=== PATIENT | female | born 1965 | race Caucasian/White ===

== ENCOUNTER → 2017-01-28 | Outpatient (CLI) | payer OTHER ==
--- NOTE | 2017-01-30 09:06 | MM ---
Reason for exam: additional evaluation requested from prior study. Last mammogram was performed 1 year and 7 months ago. History: Patient is postmenopausal. Family history of breast cancer in paternal grandmother at age 50 and breast cancer in paternal aunt at age 50. Took estrogen for 6 months beginning at age 38. Physical Findings: Nurse did not find any significant physical abnormalities on exam. MG Diagnostic Mammo w CAD MADELEINE Bilateral CC and MLO view(s) were taken. Spot compression CC view(s) were taken of the left breast. Prior study comparison: July 14, 2015, bilateral MG 3d diag mammo w/cad MADELEINE. The breast tissue is heterogeneously dense. This may lower the sensitivity of mammography. A central asymmetry on the left CC view does not persist. No significant new findings when compared with previous films. These results were verbally communicated with the patient and result sheet given to the patient on 01/28/17. ASSESSMENT: Negative, BI-RAD 1 RECOMMENDATION: Routine screening mammogram of both breasts in 1 year. Manage on a clinical basis with regard to left breast pain.
== END | disposition home or self-care (01) ==
LOC: RADMAMWWP 08:08
PROVIDERS: ATTEND Family Medicine
DX: N64.4 Mastodynia (principal)

== ENCOUNTER → 2017-03-22 | Outpatient (CLI) | payer OTHER ==
--- NOTE | 2017-03-22 17:24 | ECHOF ---
Referral Reason:R06.02 sob MEASUREMENTS -------- HEIGHT: 157.5 cm WEIGHT: 98.9 kg BP: IVSd: 1.1 cm (0.6 - 1.1) LVIDd: 4.3 cm (3.9 - 5.3) LVPWd: 1.2 cm (0.6 - 1.1) IVSs: 1.7 cm LVIDs: 2.3 cm LVPWs: 2.0 cm Ao Diam: 2.9 cm (2.0 - 3.7) AV Cusp: 1.9 cm (1.5 - 2.6) LA Diam: 3.4 cm (2.7 - 3.8) MV EXCURSION: 14.577 mm (> 18.000) MV EF SLOPE: 111 mm/s (70 - 150) EPSS: 0.5 cm MV E Carlos: 1.07 m/s MV DecT: 178 ms MV A Carlos: 1.04 m/s MV E/A Ratio: 1.03 RAP: 5.00 mmHg RVSP: 18.37 mmHg FINDINGS -------- Sinus rhythm. This was a technically good study. There is borderline concentric left ventricular hypertrophy. Overall left ventricular systolic function is normal with, an EF between 55 - 60 %. The right ventricle is normal in size. The left atrium is normal in size. The right atrium is normal in size. The aortic valve is trileaflet, and appears structurally normal. No aortic stenosis or regurgitation. The mitral valve leaflets are mildly thickened. Mild mitral annular calcification present. There is trace mitral regurgitation. Trace tricuspid regurgitation present. The right ventricular systolic pressure, as measured by Doppler, is 18.37mmHg. Pulmonic valve appears structurally normal. The aortic root size is normal. The pericardium is normal. CONCLUSIONS -------- 1. Sinus rhythm. 2. Mild mitral annular calcification present. 3. There is trace mitral regurgitation. 4. Trace tricuspid regurgitation present. 5. The right ventricular systolic pressure, as measured by Doppler, is 18.37mmHg. 6. Pulmonic valve appears structurally normal. 7. The aortic root size is normal. 8. The pericardium is normal. 9. This was a technically good study. 10. There is borderline concentric left ventricular hypertrophy. 11. Overall left ventricular systolic function is normal with, an EF between 55 - 60 %. 12. The right ventricle is normal in size. 13. The left atrium is normal in size. 14. The right atrium is normal in size. 15. The aortic valve is trileaflet, and appears structurally normal. No aortic stenosis or regurgitation. 16. The mitral valve leaflets are mildly thickened. [employer] DEVELOPER: Tnaya Cardenas RDCS
--- NOTE | 2017-03-23 14:46 | ECHOS ---
DATE OF SERVICE: 03/22/2017 TYPE OF REPORT: STRESS ECHOCARDIOGRAM INDICATIONS: Mrs. Ramsey is a 52-year-old female with history of chest pain and hypertension being evaluated for cardiac status. BASELINE HEART RATE: 95 BASELINE BLOOD PRESSURE: 196/93 MAXIMUM HEART RATE: 149 MAXIMUM BLOOD PRESSURE: 203/68 85% MPHR 144 100% MPHR 169 METS: 7.1 MAXIMUM STAGE REACHED: 3 TOTAL EXERCISE TIME: 6:00 Baseline EKG showed sinus rhythm with normal ID interval and normal QRS duration. Blood pressure at rest is 161/93 with pulse rate of 95. Patient walked on a Rhett protocol for 6 minutes achieving a maximum heart rate of 150 with blood pressure of 173/98. EKGs taken during and after the exercise did not reveal any significant changes from the baseline. Baseline echo images showed normal wall motion and thickening. Exercise echo images showed augmentation of the wall motion and thickening of all the segments. FINAL IMPRESSION: 1. Negative stress test. 2. Negative stress echo. LISA
== END ==
LOC: RADNMMAIN 09:40
PROVIDERS: ATTEND Family Medicine
DX: R07.9 Chest pain, unspecified (principal); I08.1 Rheumatic disorders of both mitral and tricuspid valves
CPT/HCPCS: 93017; 93306; 93350

== ENCOUNTER 2017-06-11 21:55 | Inpatient (IN) | payer OTHER ==
--- NOTE | 2017-06-11 22:20 | ED ---
General Adult HPI - General Chief complaint: Dizziness Stated complaint: infection Time Seen by Provider: 06/11/17 22:12 Source: patient, RN notes reviewed, old records reviewed Mode of arrival: ambulatory Limitations: no limitations - History of Present Illness Initial comments: This is a 52-year-old female to the ER for evaluation. She comes in today for evaluation of not feeling well. Patient states she has not been feeling well for about 2 weeks. We'll proceed to she may have prediabetes. She has no significant medical history. No nausea or vomiting. No chest pain no shortness of breath. Patient states she also has had admitted with an infection on her left pointer finger. This infection got worse over the last 2 days. She believes if x-ray because of her symptoms. She states the abscess originally drained and now is much worse. - Related Data Home Medications Medication Instructions Recorded Confirmed Atenolol [Tenormin] 50 mg PO DAILY 10/31/14 06/11/17 Previous Rx's Medication Instructions Recorded Sulfamethox-Tmp 800-160Mg [Bactrim 1 tab PO Q12HR #20 tab 06/11/17 DS 800-160 mg] Insulin Glargine,Hum.rec.anlog 10 unit SQ DAILY #3 pen 06/12/17 [Lantus Solostar] metFORMIN HCL [Glucophage] 500 mg PO BID-W/MEALS #60 tab 06/12/17 Allergies Allergy/AdvReac Type Severity Reaction Status Date / Time No Known Allergies Allergy Verified 06/11/17 22:30 Review of Systems ROS Statement: Those systems with pertinent positive or pertinent negative responses have been documented in the HPI. ROS Other: All systems not noted in ROS Statement are negative. Past Medical History Past Medical History: Hypertension, Neurologic Disorder, Pneumonia Additional Past Medical History / Comment(s): 12/01/14 PT admitted to floor s/p cervical surgery. Other HX: PT HAD BACTERIAL PNEUMONIA 10/31/14-STILL HAS ACUTE LARYNGITIS. MIGRAINES History of Any Multi-Drug Resistant Organisms: None Reported Past Surgical History: Hysterectomy Additional Past Surgical History / Comment(s): 12/01/14 Anterior cervical decompression and fusion C5-6, C6-7 with placement interbody graft C5-6, C6-7m application of anterior cevical plate C5,6,7. DIAGNOSTIC LAP EXAM/OVARIAN CYSTECTOMY. COLONOSCOPY. D & C Past Anesthesia/Blood Transfusion Reactions: Postoperative Nausea & Vomiting ( PONV) Past Psychological History: No Psychological Hx Reported Smoking Status: Former smoker Past Alcohol Use History: Occasional Past Drug Use History: None Reported - Past Family History Mother Family Medical History: Cancer Father Additional Family Medical History / Comment(s): Father is alive with no major medical problems. Grandfather had history of heart failure. Sister(s) Additional Family Medical History / Comment(s): Patient had a sister that at age 12 from ALLERGIC reaction with history of asthma. Patient has one daughter with no major medical problems. General Exam Limitations: no limitations General appearance: alert, in no apparent distress Head exam: Present: atraumatic, normocephalic, normal inspection Eye exam: Present: normal appearance, PERRL, EOMI. Absent: scleral icterus, conjunctival injection, periorbital swelling ENT exam: Present: normal exam, mucous membranes moist Neck exam: Present: normal inspection. Absent: tenderness, meningismus, lymphadenopathy Respiratory exam: Present: normal lung sounds bilaterally. Absent: respiratory distress, wheezes, rales, rhonchi, stridor Cardiovascular Exam: Present: regular rate, normal rhythm, normal heart sounds. Absent: systolic murmur, diastolic murmur, rubs, gallop, clicks GI/Abdominal exam: Present: soft, normal bowel sounds. Absent: distended, tenderness, guarding, rebound, rigid Extremities exam: Present: normal inspection, full ROM, normal capillary refill , other (Left index finger paronychia). Absent: tenderness, pedal edema, joint swelling, calf tenderness Back exam: Present: normal inspection Neurological exam: Present: alert, oriented X3, CN II-XII intact Psychiatric exam: Present: normal affect, normal mood Skin exam: Present: warm, dry, intact, normal color. Absent: rash Course Vital Signs 06/11/17 06/12/17 06/12/17 21:59 03:30 07:00 Temperature 98 F 98.2 F 98.2 F Pulse Rate 91 Pulse Rate [ 76 80 Pulse Oximetery ] Respiratory 20 16 16 Rate Blood Pressure 189/85 Blood Pressure 147/70 137/67 [Left Arm] O2 Sat by Pulse 97 98 96 Oximetry 06/12/17 06/12/17 08:00 15:55 Temperature Pulse Rate Pulse Rate [ 80 80 Pulse Oximetery ] Respiratory 16 16 Rate Blood Pressure Blood Pressure [Left Arm] O2 Sat by Pulse Oximetry EKG Findings - EKG Comments: EKG Findings:: EKG shows normal sinus at a rate of 81, NV 140, QRS 86, QTC 432 Procedures - Incision & Drainage Consent Obtained: verbal consent Time Out Performed?: Yes Site: other (Left Index Finger) Anesthetic Used: lidocaine 1% I&D Cleaning Method: Betadine Sterile Field Used?: Yes Scalpel Used: #11 Needle Aspiration Performed?: Yes Irrigation Performed?: Yes I&D Drainage Obtained: Pus Culture Obtained?: No Complications: pain Patient Tolerated Procedure: well Medical Decision Making - Medical Decision Making 52 female the ER for evaluation regarding not feeling well. Patient's left index paronychia, that is infected incised and drained, patient is given antibiotics and patient also for severely elevated blood sugar, patient will be admitted for control blood sugar IV antibiotics and reevaluation of him paronychia - Lab Data Result diagrams: 06/11/17 22:42 06/11/17 22:42 Lab Results 06/11/17 06/11/17 06/11/17 Range/Units 22:42 22:42 22:42 WBC 7.3 (3.8-10.6) k/uL RBC 4.71 (3.80-5.40) m/uL Hgb 14.6 (11.4-16.0) gm/dL Hct 42.2 (34.0-46.0) % MCV 89.5 (80.0-100.0) fL MCH 31.0 (25.0-35.0) pg MCHC 34.6 (31.0-37.0) g/dL RDW 12.2 (11.5-15.5) % Plt Count 346 (150-450) k/uL Neutrophils % 62 % Lymphocytes % 27 % Monocytes % 5 % Eosinophils % 3 % Basophils % 1 % Neutrophils # 4.5 (1.3-7.7) k/uL Lymphocytes # 1.9 (1.0-4.8) k/uL Monocytes # 0.4 (0-1.0) k/uL Eosinophils # 0.2 (0-0.7) k/uL Basophils # 0.1 (0-0.2) k/uL Sodium 131 L (137-145) mmol/L Potassium 4.8 (3.5-5.1) mmol/L Chloride 94 L (98-107) mmol/L Carbon Dioxide 25 (22-30) mmol/L Anion Gap 12 mmol/L BUN 13 (7-17) mg/dL Creatinine 0.60 (0.52-1.04) mg/dL Est GFR (MDRD) Af Amer >60 (>60 ml/min/1.73 sqM) Est GFR (MDRD) Non-Af >60 (>60 ml/min/1.73 sqM) Glucose 634 H* (74-99) mg/dL POC Glucose (mg/dL) (75-99) mg/dL POC Glu Director Supply ID Estimated Ave Glu mg/dL Hemoglobin A1c (4.0-6.0) % Calcium 9.3 (8.4-10.2) mg/dL Phosphorus 4.0 (2.5-4.5) mg/dL Magnesium 1.8 (1.6-2.3) mg/dL Total Bilirubin 0.5 (0.2-1.3) mg/dL AST 47 H (14-36) U/L ALT 77 H (9-52) U/L Alkaline Phosphatase 224 H (38-126) U/L Total Creatine Kinase 78 (30-135) U/L CK-MB (CK-2) 0.9 (0.0-2.4) ng/mL CK-MB (CK-2) Rel Index 1.2 Troponin I <0.012 (0.000-0.034) ng/mL Total Protein 7.0 (6.3-8.2) g/dL Albumin 4.2 (3.5-5.0) g/dL Acetone, Qual (Negative) 06/11/17 06/11/17 06/12/17 Range/Units 22:42 22:42 01:19 WBC (3.8-10.6) k/uL RBC (3.80-5.40) m/uL Hgb (11.4-16.0) gm/dL Hct (34.0-46.0) % MCV (80.0-100.0) fL MCH (25.0-35.0) pg MCHC (31.0-37.0) g/dL RDW (11.5-15.5) % Plt Count (150-450) k/uL Neutrophils % % Lymphocytes % % Monocytes % % Eosinophils % % Basophils % % Neutrophils # (1.3-7.7) k/uL Lymphocytes # (1.0-4.8) k/uL Monocytes # (0-1.0) k/uL Eosinophils # (0-0.7) k/uL Basophils # (0-0.2) k/uL Sodium (137-145) mmol/L Potassium (3.5-5.1) mmol/L Chloride (98-107) mmol/L Carbon Dioxide (22-30) mmol/L Anion Gap mmol/L BUN (7-17) mg/dL Creatinine (0.52-1.04) mg/dL Est GFR (MDRD) Af Amer (>60 ml/min/1.73 sqM) Est GFR (MDRD) Non-Af (>60 ml/min/1.73 sqM) Glucose (74-99) mg/dL POC Glucose (mg/dL) 480 H (75-99) mg/dL POC Glu Director Supply ID Candelaria Smith Estimated Ave Glu mg/dL 243 Hemoglobin A1c 10.1 H (4.0-6.0) % Calcium (8.4-10.2) mg/dL Phosphorus (2.5-4.5) mg/dL Magnesium (1.6-2.3) mg/dL Total Bilirubin (0.2-1.3) mg/dL AST (14-36) U/L ALT (9-52) U/L Alkaline Phosphatase (38-126) U/L Total Creatine Kinase (30-135) U/L CK-MB (CK-2) (0.0-2.4) ng/mL CK-MB (CK-2) Rel Index Troponin I (0.000-0.034) ng/mL Total Protein (6.3-8.2) g/dL Albumin (3.5-5.0) g/dL Acetone, Qual Negative (Negative) 06/12/17 06/12/17 Range/Units 02:17 03:11 WBC (3.8-10.6) k/uL RBC (3.80-5.40) m/uL Hgb (11.4-16.0) gm/dL Hct (34.0-46.0) % MCV (80.0-100.0) fL MCH (25.0-35.0) pg MCHC (31.0-37.0) g/dL RDW (11.5-15.5) % Plt Count (150-450) k/uL Neutrophils % % Lymphocytes % % Monocytes % % Eosinophils % % Basophils % % Neutrophils # (1.3-7.7) k/uL Lymphocytes # (1.0-4.8) k/uL Monocytes # (0-1.0) k/uL Eosinophils # (0-0.7) k/uL Basophils # (0-0.2) k/uL Sodium (137-145) mmol/L Potassium (3.5-5.1) mmol/L Chloride (98-107) mmol/L Carbon Dioxide (22-30) mmol/L Anion Gap mmol/L BUN (7-17) mg/dL Creatinine (0.52-1.04) mg/dL Est GFR (MDRD) Af Amer (>60 ml/min/1.73 sqM) Est GFR (MDRD) Non-Af (>60 ml/min/1.73 sqM) Glucose (74-99) mg/dL POC Glucose (mg/dL) 366 H 273 H (75-99) mg/dL POC Glu Director Supply ID Candelaria Smith Brenda Estimated Ave Glu mg/dL Hemoglobin A1c (4.0-6.0) % Calcium (8.4-10.2) mg/dL Phosphorus (2.5-4.5) mg/dL Magnesium (1.6-2.3) mg/dL Total Bilirubin (0.2-1.3) mg/dL AST (14-36) U/L ALT (9-52) U/L Alkaline Phosphatase (38-126) U/L Total Creatine Kinase (30-135) U/L CK-MB (CK-2) (0.0-2.4) ng/mL CK-MB (CK-2) Rel Index Troponin I (0.000-0.034) ng/mL Total Protein (6.3-8.2) g/dL Albumin (3.5-5.0) g/dL Acetone, Qual (Negative) Disposition Clinical Impression: Paronychia of left index finger, Hyperglycemia Disposition: ADMITTED IP TO THIS HOSP Condition: Good
[2017-06-11] MEDS ORDERED: MORPHINE SULFATE 10 MG/ML SYRINGE IV STA (22:43)
[2017-06-11] MEDS ORDERED: KETOROLAC 30 MG/ML 1 ML VIAL IVP STA (22:43)
[2017-06-11] MEDS ORDERED: ONDANSETRON 4 MG/2 ML VIAL IVP STA (22:43)
[2017-06-11] MEDS ORDERED: SODIUM CHLORIDE 0.9% 1,000 ML IV STA ×2 (22:43)
[2017-06-11] MEDS ORDERED: AMPICILLIN-SULBACTAM 3 GM in SODIUM CHLORIDE 0.9% 100 ML IVPB STA (22:47)
[2017-06-11 22:54] LABS: Basophils # (A) 0.1 k/uL (0-0.2); Basophils % (A) 1 %; CH 31.9; CHCM 35.8; Eosinophils # (A) 0.2 k/uL (0-0.7); Eosinophils % (A) 3 %; HCT 42.2 % (34.0-46.0); HDW 2.94; HGB 14.6 gm/dL (11.4-16.0); Luc # (Auto) 0.19; Luc % (Auto) 3; Lymphocytes # (A) 1.9 k/uL (1.0-4.8); Lymphocytes % (A) 27 %; MCHC 34.6 g/dL (31.0-37.0); MCV 89.5 fL (80.0-100.0); Mean Platelet Volume 7.9; Monocytes # (A) 0.4 k/uL (0-1.0); Monocytes % (A) 5 %; Neutrophils # (A) 4.5 k/uL (1.3-7.7); Neutrophils % (A) 62 %; RBC 4.71 m/uL (3.80-5.40); RDW 12.2 % (11.5-15.5); WBC 7.3 k/uL (3.8-10.6); WBC (Perox) 7.13
[2017-06-11 23:07] LABS: ALT 77 U/L (9-52); AST 47 U/L (14-36); Alkaline Phosphatase 224 U/L (38-126); Anion Gap 12 mmol/L; Blood Urea Nitrogen 13 mg/dL (7-17); Calcium 9.3 mg/dL (8.4-10.2); Carbon Dioxide 25 mmol/L (22-30); Chloride 94 mmol/L (98-107); Magnesium 1.8 mg/dL (1.6-2.3); Non-African American GFR(MDRD) >60 (>60 ml/min/1.73 sqM); Potassium 4.8 mmol/L (3.5-5.1); Sodium 131 mmol/L (137-145); Total Bilirubin 0.5 mg/dL (0.2-1.3)
[2017-06-11] MEDS ORDERED: SODIUM CHLORIDE 0.9% 100 ML BAG ONE (23:53)
[2017-06-11] MEDS ORDERED: HYDROcodone/APAP 5-325MG 1 EACH TAB ONE (23:53)
[2017-06-11] MEDS ORDERED: VANCOMYCIN 1,000 MG VIAL ONE (23:53)
[2017-06-11] MEDS ORDERED: INSULIN REGULAR 100 UNIT/ML VIAL ONE (23:53)
[2017-06-11] MEDS ORDERED: SODIUM CHLORIDE 0.9% 250 ML BAG ONE (23:53)
[2017-06-11] MEDS ORDERED: VANCOMYCIN 500 MG VIAL IVPB ONE (23:53)
[2017-06-12 03:19] LABS: Glucose 634 mg/dL (74-99)
[2017-06-12 04:00] LABS: Creatine Kinase 78 U/L (30-135); Creatine Kinase MB 0.9 ng/mL (0.0-2.4); Troponin I <0.012 ng/mL (0.000-0.034)
[2017-06-12] MEDS ORDERED: VANCOMYCIN 1,500 MG in SODIUM CHLORIDE 0.9% 250 ML IVPB ONE (04:00)
[2017-06-12 04:06] LABS: Glucose,Whole Blood 273 mg/dL (75-99)
[2017-06-12 04:06] LABS: Glucose,Whole Blood 366 mg/dL (75-99)
[2017-06-12 04:06] LABS: Glucose,Whole Blood 480 mg/dL (75-99)
[2017-06-12 05:31] LABS: Glucose,Whole Blood 248 mg/dL (75-99)
[2017-06-12 05:40] VITALS: RESP 16; TEMP 98.2
[2017-06-12 06:02] VITALS: BMI 38.9
[2017-06-12] MEDS ORDERED: VANCOMYCIN IV PER PHARMACY 1 EACH MISC MISCELLANE ONE (06:15)
[2017-06-12] MEDS ORDERED: SODIUM CHLORIDE 0.9% 1,000 ML IV SCH (06:15)
[2017-06-12] MEDS: HYDROcodone/APAP 5-325MG 1 EACH TAB PO PRN ×2 (06:29→12:29)
[2017-06-12 07:21] LABS: Glucose,Whole Blood 222 mg/dL (75-99)
[2017-06-12 07:29] LABS: Glucose,Whole Blood 271 mg/dL (75-99)
[2017-06-12 07:29] LABS: Glucose,Whole Blood 283 mg/dL (75-99)
[2017-06-12 07:29] LABS: Glucose,Whole Blood 264 mg/dL (75-99)
[2017-06-12 07:45] VITALS: BP 137/67; PULSE 80
[2017-06-12] MEDS: INSULIN REGULAR 100 UNIT in SODIUM CHLORIDE 0.9% 100 ML IV SCH ×2 (08:05→08:19)
[2017-06-12 08:24] LABS: Glucose,Whole Blood 210 mg/dL (75-99)
[2017-06-12] MEDS ORDERED: metFORMIN 500 MG TAB PO SCH (08:30)
[2017-06-12] MEDS ORDERED: VANCOMYCIN 1,750 MG in SODIUM CHLORIDE 0.9% 250 ML IVPB SCH (09:00)
[2017-06-12] MEDS ORDERED: ATENOLOL 50 MG TAB PO SCH (09:00)
[2017-06-12] MEDS ORDERED: INSULIN REGULAR 100 UNIT in SODIUM CHLORIDE 0.9% 100 ML IV SCH (09:00)
[2017-06-12 12:19] LABS: Glucose,Whole Blood 207 mg/dL (75-99)
[2017-06-12] MEDS ORDERED: INSULIN ASPART 100 UNIT/ML 1 ML 10 ML VIAL SQ SCH (12:30)
[2017-06-12] MEDS ORDERED: INSULIN DETEMIR 100 UNIT/ML 10 ML VIAL SQ SCH (13:30)
--- NOTE | 2017-06-12 15:32 | P.HPIM ---
History of Present Illness H&P Date: 06/12/17 Chief Complaint: Infected left index finger, abscess HISTORY AND PHYSICAL AND DISCHARGE SUMMRY: This is a 52-year-old female patient of Dr. Lomax with history of hypertension, migraine headaches. Patient states she was last in to see Dr. Burger in February and was diagnosed with prediabetes and was to come back in June for a recheck. In the meantime, patient states she had a piece of skin on the side of her left middle finger for which she pulled it and developed an abscess at the site. Amoxicillin was called in to her pharmacy for her and she took one dose but this pain to the finger Getting worse with swelling and redness and she came into the [facility] emergency center for evaluation. Patient presented with blood sugar of 634, acetone negative. White count was normal. Patient underwent I&D and was placed on vancomycin and admitted to the [facility] floor. Patient was subsequent started on Levemir 10 units daily along with metformin 500 mg twice daily. Patient and daughter both state that her finger abscess is much improved with decreased redness. Blood sugar is now down to 207 and patient is requesting to be discharged home today. Case management has provided the patient with a glucometer. Prescription left for glucometer and other supplies. Patient will be discharged home today in stable condition. She was noted to have elevated liver function tests with AST 47, ALT 77 and alkaline phosphatase 224 for which she will be worked up at her primary care physician's office Review of Systems All systems: negative Constitutional: Reports malaise, Denies chills, Denies fever Eyes: denies blurred vision, denies pain Ears, nose, mouth and throat: Denies headache, Denies sore throat Cardiovascular: Denies chest pain, Denies shortness of breath Respiratory: Denies cough Gastrointestinal: Denies abdominal pain, Denies diarrhea, Denies nausea, Denies vomiting Genitourinary: Denies dysuria, Denies hematuria Musculoskeletal: Denies myalgias Integumentary: Reports wounds, Denies pruritus, Denies rash Neurological: Denies numbness, Denies weakness Psychiatric: Denies anxiety, Denies depression Endocrine: Denies fatigue, Denies weight change Past Medical History Past Medical History: Hypertension, Neurologic Disorder, Pneumonia Additional Past Medical History / Comment(s): 12/01/14 PT admitted to floor s/p cervical surgery. Other HX: PT HAD BACTERIAL PNEUMONIA 10/31/14-STILL HAS ACUTE LARYNGITIS. MIGRAINES. neurodisorder-neck surgery(2014) History of Any Multi-Drug Resistant Organisms: None Reported Past Surgical History: Hysterectomy Additional Past Surgical History / Comment(s): 12/01/14 Anterior cervical decompression and fusion C5-6, C6-7 with placement interbody graft C5-6, C6-7m application of anterior cevical plate C5,6,7. DIAGNOSTIC LAP EXAM/OVARIAN CYSTECTOMY. COLONOSCOPY. D & C Past Anesthesia/Blood Transfusion Reactions: Postoperative Nausea & Vomiting ( PONV) Past Psychological History: No Psychological Hx Reported Smoking Status: Former smoker Past Alcohol Use History: Occasional Past Drug Use History: None Reported - Past Family History Mother Family Medical History: Cancer Additional Family Medical History / Comment(s): Mother is alive at this time with no major medical problems. Father Additional Family Medical History / Comment(s): Father is alive with no major medical problems. Grandfather had history of heart failure. Sister(s) Additional Family Medical History / Comment(s): Patient had a sister that at age 12 from ALLERGIC reaction with history of asthma. Patient has one daughter with no major medical problems. Medications and Allergies Home Medications Medication Instructions Recorded Confirmed Type Atenolol [Tenormin] 50 mg PO DAILY 10/31/14 06/11/17 History Sulfamethox-Tmp 800-160Mg [Bactrim 1 tab PO Q12HR #20 tab 06/11/17 Rx DS 800-160 mg] Insulin Glargine,Hum.rec.anlog 10 unit SQ DAILY #3 pen 06/12/17 Rx [Lantus Solostar] metFORMIN HCL [Glucophage] 500 mg PO BID-W/MEALS #60 tab 06/12/17 Rx Allergies Allergy/AdvReac Type Severity Reaction Status Date / Time No Known Allergies Allergy Verified 06/11/17 22:30 Physical Exam Vitals: Vital Signs Temp Pulse Pulse Resp BP BP Pulse Ox 06/12/17 07:00 98.2 F 80 16 137/67 96 06/12/17 03:30 98.2 F 76 16 147/70 98 06/11/17 21:59 98 F 91 20 189/85 97 Intake and Output 06/11/17 06/12/17 06/12/17 22:59 06:59 14:59 Other: Voiding Method Toilet # Voids 0 Weight 96.615 kg 96.615 kg Gen: This is a morbidly obese 52-year-old female. She is sitting up in bed and appears to be in no acute distress. HEENT: Head is atraumatic, normocephalic. Pupils equal, round. Sclerae is anicteric. NECK: Supple. No JVD. No lymphadenopathy. No thyromegaly. LUNGS: Clear to auscultation. No wheezes or rhonchi. No intercostal retractions. HEART: Regular rate and rhythm. No murmur. ABDOMEN: Soft. Bowel sounds are present. No masses. No tenderness. EXTREMITIES: No pedal edema. No calf tenderness. Wound noted to the distal left middle finger along nail bed. Very minimal erythema NEUROLOGICAL: Patient is awake, alert and oriented x3. Cranial nerves 2 through 12 are grossly intact. Results CBC & Chem 7: 06/11/17 22:42 06/11/17 22:42 Labs: Abnormal Lab Results - Last 24 Hours (Table) 06/11/17 06/12/17 06/12/17 Range/Units 22:42 01:19 02:17 Sodium 131 L (137-145) mmol/L Chloride 94 L (98-107) mmol/L Glucose 634 H* (74-99) mg/dL POC Glucose (mg/dL) 480 H 366 H (75-99) mg/dL AST 47 H (14-36) U/L ALT 77 H (9-52) U/L Alkaline Phosphatase 224 H (38-126) U/L 06/12/17 06/12/17 06/12/17 Range/Units 03:11 03:58 04:28 Sodium (137-145) mmol/L Chloride (98-107) mmol/L Glucose (74-99) mg/dL POC Glucose (mg/dL) 273 H 283 H 271 H (75-99) mg/dL AST (14-36) U/L ALT (9-52) U/L Alkaline Phosphatase (38-126) U/L 06/12/17 06/12/17 06/12/17 Range/Units 04:58 05:29 07:18 Sodium (137-145) mmol/L Chloride (98-107) mmol/L Glucose (74-99) mg/dL POC Glucose (mg/dL) 264 H 248 H 222 H (75-99) mg/dL AST (14-36) U/L ALT (9-52) U/L Alkaline Phosphatase (38-126) U/L 06/12/17 Range/Units 08:03 Sodium (137-145) mmol/L Chloride (98-107) mmol/L Glucose (74-99) mg/dL POC Glucose (mg/dL) 210 H (75-99) mg/dL AST (14-36) U/L ALT (9-52) U/L Alkaline Phosphatase (38-126) U/L Thrombosis Risk Factor Assmnt - DVT/VTE Prophylaxis DVT/VTE Prophylaxis: Pharmacologic Prophylaxis ordered Assessment and Plan Plan: 1. Hyperglycemia with history of prediabetes. Patient will be started on metformin 500 mg twice daily and Humalog scale before meals and at bedtime. Hemoglobin A1c is 10.1. Patient started on Lantus and metformin. 2. Infected left index finger abscess status post I&D. Patient placed on Bactrim for home. Amoxicillin discontinued. 3. Hypertension. Continue atenolol. Patient will be admitted to the hospital for a minimum of 1 night stay. Discharge plan: Return home Impression and plan of care have been directed as dictated by the signing physician. Rosemarie Kirk nurse practitioner acting as scribe for signing physician.
[2017-06-12] MEDS ORDERED: HEPARIN SODIUM,PORCINE 5,000 UNIT/ML 1 ML VIAL SQ SCH (16:00)
== END 2017-06-12 16:10 | disposition home or self-care (01) | DRG 603 ==
LOC: EC 21:55 → 5MS5E 06-12 03:45
PROVIDERS: ADMIT Family Medicine; ATTEND Family Medicine
PROC: 0H9GXZZ Drainage of Left Hand Skin, External Approach (ICD-10-PCS; principal; 2017-06-12)
DX: L03.012 Cellulitis of left finger (principal); E66.01 Morbid (severe) obesity due to excess calories; I10 Essential (primary) hypertension; L02.512 Cutaneous abscess of left hand; R73.03 Prediabetes; Z79.4 Long term (current) use of insulin; Z87.01 Personal history of pneumonia (recurrent); Z90.710 Acquired absence of both cervix and uterus; Z98.1 Arthrodesis status; Z87.891 Personal history of nicotine dependence; Z82.5 Family history of asthma and other chronic lower respiratory diseases; Z82.49 Family history of ischemic heart disease and other diseases of the circulatory system; Z79.899 Other long term (current) drug therapy; Z86.69 Personal history of other diseases of the nervous system and sense organs
CPT/HCPCS: 10060; 36415; 80053; 82009; 82550; 82553; 83036; 83735; 84100; 84484; 85025; 87040; 93005; 96361; 96374; 96375; 99285

== ENCOUNTER → 2018-02-21 | Outpatient (CLI) | payer BC ==
--- NOTE | 2018-02-21 11:37 | CT ---
EXAMINATION TYPE: CT sinus wo con DATE OF EXAM: 02/21/2018 COMPARISON: None HISTORY: Chronic sinusitis CT DLP: 577.3 mGycm CONTRAST: 0 mL of Isovue 300 The paranasal sinuses are examined in the axial plane at 2 mm thick sections. Reconstructed images i n the coronal plane were obtained. There is dental amalgam scatter artifact The maxillary sinuses are clear. The ethmoid air cells are clear. The sphenoid sinuses are clear. The frontal sinuses are clear. The septum is evaluated. There is septal deviation to the left. The ostiomeatal units are patent. IMPRESSIONS: 1. Septal deviation to the left.
== END | disposition home or self-care (01) ==
LOC: RADCTMAIN 07:15
PROVIDERS: ATTEND Otolaryngology
DX: J34.2 Deviated nasal septum (principal)
CPT/HCPCS: 70486

== ENCOUNTER → 2018-05-22 | Outpatient (CLI) | payer BC ==
--- NOTE | 2018-05-22 08:34 | US ---
EXAMINATION TYPE: US carotid duplex BILAT DATE OF EXAM: 05/22/2018 COMPARISON: NONE CLINICAL HISTORY: I69.922 Dysarthria following unspecified; HTN; Diabetic; neck fusion; headaches EXAM MEASUREMENTS: RIGHT: Peak Systolic Velocity (PSV) cm/sec ----- Right CCA: 74.5 ----- Right ICA: 89.5 ----- Right ECA: 100.5 ICA/CCA ratio: 1.2 RIGHT: End Diastole cm/sec ----- Right CCA: 23.8 ----- Right ICA: 37.5 ----- Right ECA: 22.2 LEFT: Peak Systolic Velocity (PSV) cm/sec ----- Left CCA: 59.0 ----- Left ICA: 81.6 ----- Left ECA: 96.8 ICA/CCA ratio: 1.4 LEFT: End Diastole cm/sec ----- Left CCA: 16.1 ----- Left ICA: 36.1 ----- Left ECA: 17.2 VERTEBRALS (direction of flow): Right Vertebral: Antegrade Left Vertebral: Antegrade Rhythm: Normal Moderate intimal wall changes are noted at right carotid bifurcation and mild intimal wall changes no ritchie at left carotid bifurcation, but PSV is wnl. Incidental finding is noted of right thyroid nodule = 1.3 x 1.1 x 1.0cm. IMPRESSION: 1. Mild degree of grayscale atheromatous plaquing with no sonographically evident hemodynamically sig nificant stenosis within either visualized carotid arterial system. 2. Incidentally noted 1.3 cm right thyroid nodule. Full characterization of the thyroid could be perf ormed with follow-up thyroid ultrasound. Criteria for Assigning % of Stenosis / Diameter reduction (Estimation based on the indirect measurements of the internal carotid artery velocities (ICA PSV). 1. Normal (no stenosis)=ICA PSV < 125 cm/s: ratio < 2.0: ICA EDV<40 cm/s. 2. Less than 50% stenosis=ICA PSV < 125 cm/s: ratio < 2.0: ICA EDV<40 cm/s. 3. 50 to 69% stenosis=ICA PSV of 125 to 230 cm/s: ration 2.0 ? 4.0: ICA EDV 40-100 cm/s. 4. Greater than 70% stenosis to near occlusion= ICA PSV > 230 cm/s: ratio > 4.0: ICA EDV > 100 cm/s. 5. Near occlusion= ICA PSV velocities may be low or undetectable: variable ratio and ICA EDV. 6. Total occlusion=unable to detect flow.
== END ==
LOC: RADUSWWP 06:57
PROVIDERS: ATTEND Family Medicine
DX: I70.90 Unspecified atherosclerosis (principal)
CPT/HCPCS: 93880

== ENCOUNTER → 2018-06-03 | Outpatient (CLI) | payer BC | END | disposition home or self-care (01) | LOC: LABWHC1 16:45 | PROVIDERS: ATTEND Family Medicine | DX: Z01.812 Encounter for preprocedural laboratory examination (principal) | CPT/HCPCS: 36415; 82565 ==

== ENCOUNTER → 2018-06-04 | Outpatient (CLI) | payer BC ==
--- NOTE | 2018-06-04 16:31 | MR ---
EXAMINATION TYPE: MR brain wo/w con DATE OF EXAM: 06/04/2018 COMPARISON: None HISTORY: Dysarthria following cerbrovascular disease CONTRAST: Performed utilizing 10 mL intravenous Gadavist gadolinium contrast. TECHNIQUE: Multiplanar, multiecho imaging on a 3.0 Mel magnet is performed through the brain. Stud y is performed within 24 hours of arrival to the hospital. The craniovertebral junction is normal. The pituitary is normal. Diffusion-weighted imaging is performed. No abnormal hyperintensity is present to suggest an acute i ntracranial infarct or acute ischemic change. Signal through the brain appears normal. Following contrast, no abnormal enhancement is evident. Ventricles and sulci are appropriate for the patient age. IMPRESSIONS: 1. Normal pre and postcontrast MRI brain.
== END ==
LOC: RADMRIMAIN 08:18
PROVIDERS: ATTEND Family Medicine
DX: I69.922 Dysarthria following unspecified cerebrovascular disease (principal)
CPT/HCPCS: 70553; A9585

== ENCOUNTER → 2018-07-03 | Outpatient (CLI) | payer BC ==
--- NOTE | 2018-07-04 07:36 | US ---
EXAMINATION TYPE: US thyroid st tissue head/neck DATE OF EXAM: 07/03/2018 COMPARISON: Carotid US CLINICAL HISTORY: E04.1 Thyroid Nodule. Thyroid nodule seen on carotid US GLAND SIZE: Right Lobe: 3.5 x 1.8 x 1.3 cm Overall Parenchyma: homogenous Left Lobe: 4.1 x 1.9 x 1.8 cm Overall Parenchyma: homogeneous Isthmus Thickness: 0.3 cm NODULES RIGHT: # of nodules measured on right: 1 1. 1.0 X 1.0 x 1.0 cm hypoechoic solid nodule at the lower pole with well-defined margins; This no dule is wider than tall and shows no intranodular vascularity. Prior size: 1.3 cm on carotid scan. Differences in size is likely related to measurement technique and measurement angle. Bilateral neck scanned, no evidence of lymphadenopathy. Nodule visualized right lobe. IMPRESSION: Solitary solid approximately 1.0 cm within the right thyroid lobe. This does not meet criteria for fi ne-needle aspiration at this time and surveillances recommended.
== END | disposition home or self-care (01) ==
LOC: RADUSWWP 16:08
PROVIDERS: ATTEND Family Medicine
DX: E04.1 Nontoxic single thyroid nodule (principal)
CPT/HCPCS: 76536

== ENCOUNTER → 2019-09-29 | Outpatient (CLI) | payer BC ==
--- NOTE | 2019-09-29 14:46 | US ---
EXAMINATION TYPE: US thyroid st tissue head/neck DATE OF EXAM: 09/29/2019 COMPARISON: 07/03/2018 CLINICAL HISTORY: E04.1 Thyroid nodule. R06.02 Shortness of breath. GLAND SIZE: Right Lobe: 4.1 x 1.9 x 1.6 cm Overall Parenchyma: homogenous Left Lobe: 4.5 x 1.7 x 1.9 cm Overall Parenchyma: homogeneous Isthmus Thickness: 0.3 cm NODULES RIGHT: # of nodules measured on right: 1 1. 0.9 X 0.8 x 0.9 cm hypoechoic solid nodule at the lower pole with well-defined margins; . This nodule is wider than tall and shows intranodular vascularity. Prior size: 0.9 x 0.9 x 0.9 cm LEFT: # of nodules measured on left: 0 ISTHMUS: # of nodules measured in the isthmus: 0 Bilateral neck scanned, no evidence of lymphadenopathy. IMPRESSION: Stable 1 cm right thyroid nodule
--- NOTE | 2019-09-30 09:00 | ECHOF ---
Referral Reason:E04.1 Thyroid nodule. R06.02 Shortness of breath MEASUREMENTS -------- HEIGHT: 157.5 cm WEIGHT: 97.1 kg BP: RVIDd: 2.3 cm (< 3.3) IVSd: 1.1 cm (0.6 - 1.1) LVIDd: 3.9 cm (3.9 - 5.3) LVPWd: 1.2 cm (0.6 - 1.1) IVSs: 1.7 cm LVIDs: 2.1 cm LVPWs: 1.6 cm LAESV Index (A-L): 19.68 ml/m Ao Diam: 2.7 cm (2.0 - 3.7) AV Cusp: 1.9 cm (1.5 - 2.6) LA Diam: 3.7 cm (2.7 - 3.8) MV EXCURSION: 11.106 mm (> 18.000) MV EF SLOPE: 67 mm/s (70 - 150) EPSS: 0.6 cm MV E Carlos: 0.72 m/s MV DecT: 162 ms MV A Carlos: 0.60 m/s MV E/A Ratio: 1.21 RAP: 5.00 mmHg RVSP: 13.59 mmHg FINDINGS -------- Sinus rhythm. This was a technically good study. The left ventricular size is normal. There is borderline concentric left ventricular hypertrophy. Overall left ventricular systolic function is normal with, an EF between 55 - 60 %. The diastolic filling pattern is normal for the age of the patient 9.15. The right ventricle is normal in size. The left atrial size is normal. Normal LA size by volume 22+/-6 ml/m2. The right atrial size is normal. The aortic valve is trileaflet and appears structurally normal. The mitral valve is normal. The mitral valve leaflets are mildly thickened. There is trace mitral regurgitation. The tricuspid valve appears structurally normal. Mild tricuspid regurgitation present. Right vent ricular systolic pressure is normal at < 35 mmHg. There is no pulmonic regurgitation present. The aortic root size is normal. Normal inferior vena cava with normal inspiratory collapse consistent with estimated right atrial pre ssure of 5 mmHg. There is no pericardial effusion. CONCLUSIONS -------- 1. Sinus rhythm. 2. This was a technically good study. 3. The left ventricular size is normal. 4. There is borderline concentric left ventricular hypertrophy. 5. Overall left ventricular systolic function is normal with, an EF between 55 - 60 %. 6. The diastolic filling pattern is normal for the age of the patient 9.15 7. The right ventricle is normal in size. 8. The left atrial size is normal. 9. Normal LA size by volume 22+/-6 ml/m2. 10. The right atrial size is normal. 11. The aortic valve is trileaflet and appears structurally normal. 12. The mitral valve is normal. 13. The mitral valve leaflets are mildly thickened. 14. There is trace mitral regurgitation. 15. The tricuspid valve appears structurally normal. 16. Mild tricuspid regurgitation present. 17. Right ventricular systolic pressure is normal at < 35 mmHg. 18. There is no pulmonic regurgitation present. 19. The aortic root size is normal. 20. Normal inferior vena cava with normal inspiratory collapse consistent with estimated right atrial pressure of 5 mmHg. 21. There is no pericardial effusion. SENIOR CYTOTECHNOLOGIST: Tanya Cardenas RDCS
== END | disposition home or self-care (01) ==
LOC: RADECHMAIN 13:44
PROVIDERS: ATTEND Family Medicine
DX: E04.1 Nontoxic single thyroid nodule (principal); I07.1 Rheumatic tricuspid insufficiency
CPT/HCPCS: 76536; 93306

== ENCOUNTER → 2020-05-11 | Outpatient (CLI) | payer BC ==
[2020-05-11 08:02] LABS: Basophils # (A) 0.1 k/uL (0-0.2); Basophils % (A) 1 %; Eosinophils # (A) 0.3 k/uL (0-0.7); Eosinophils % (A) 3 %; HCT 41.4 % (34.0-46.0); HGB 14.1 gm/dL (11.4-16.0); Lymphocytes # (A) 2.3 k/uL (1.0-4.8); Lymphocytes % (A) 30 %; MCH 30.5 pg (25.0-35.0); MCHC 34.1 g/dL (31.0-37.0); MCV 89.6 fL (80.0-100.0); Mean Platelet Volume 7.2; Monocytes # (A) 0.4 k/uL (0-1.0); Monocytes % (A) 6 %; Neutrophils # (A) 4.4 k/uL (1.3-7.7); Neutrophils % (A) 58 %; Platelet Count 358 k/uL (150-450); RBC 4.62 m/uL (3.80-5.40); RDW 12.5 % (11.5-15.5); WBC 7.5 k/uL (3.8-10.6)
[2020-05-11 16:04] LABS: Hemoglobin A1C 7.2 % (4.0-6.0)
[2020-05-11 16:51] LABS: INR 0.93 (0.90-1.11)
[2020-05-11 17:46] LABS: Microalbumin Creatinine Ratio <30 mg/g Creat (0-30); Urine Creatinine 11.6 mg/dL
[2020-05-11 18:18] LABS: African American GFR (CKD) 113.8 (60.0-200.0); Albumin 4.4 g/dL (3.80-4.90); Albumin/Globulin Ratio 1.83 (1.60-3.17); Anion Gap 11.2 mmol/L (4.00-12.00); BUN/Creat Ratio 21.43 Ratio (12.00-20.00); Calcium 9.2 mg/dL (8.7-10.3); Carbon Dioxide 27.8 mmol/L (21.6-31.8); Chol/HDL Ratio 4.38; Globulin 2.4 g/dL (1.6-3.3); LDL Cholesterol,Calculated 121.2 mg/dL (0.0-131.0); Non-African American GFR(CKD) 98.2 (60.0-200.0); Potassium 4.9 mmol/L (3.5-5.5); Total Bilirubin 0.4 mg/dL (0.2-1.2); Total Protein 6.8 g/dL (6.2-8.2); Uric Acid 6.5 mg/dL (2.9-7.7); VLDL Calculation 30.8 mg/dL (5.00-40.00)
[2020-05-11 18:27] LABS: T4, Free (Free Thyroxine) 1.2 ng/dL (0.80-1.80)
== END | disposition home or self-care (01) ==
LOC: LABWHC1 07:05
PROVIDERS: ATTEND Family Medicine
DX: Z01.818 Encounter for other preprocedural examination (principal); E11.65 Type 2 diabetes mellitus with hyperglycemia; E78.2 Mixed hyperlipidemia; G56.01 Carpal tunnel syndrome, right upper limb; M54.31 Sciatica, right side
CPT/HCPCS: 36415; 80053; 80061; 82043; 82550; 82570; 82607; 83036; 84439; 84443; 84550; 85025; 85610

== ENCOUNTER → 2021-03-14 | Outpatient (CLI) | payer BC ==
[2021-03-14 14:49] LABS: Basophils # (A) 0.08 X 10*3/uL (0.00-0.10); Basophils % (A) 1.2 %; Eosinophils % (A) 4.5 %; HCT 38.8 % (37.2-46.3); HGB 13.7 g/dL (12.0-15.0); Lymphocytes # (A) 2.05 X 10*3/uL (0.90-5.00); Lymphocytes % (A) 31.1 %; MCH 30.8 pg (27.0-32.0); MCHC 35.3 g/dL (32.0-37.0); MCV 87.2 fL (80.0-97.0); Mean Platelet Volume 10.8 fL (9.5-12.2); Monocytes # (A) 0.45 X 10*3/uL (0.20-1.00); Monocytes % (A) 6.8 %; Neutrophils # (A) 3.69 X 10*3/uL (1.80-7.70); Neutrophils % (A) 55.9 %; Platelet Count 339 X 10*3/uL (140-440); RBC 4.45 X 10*6/uL (4.10-5.20)
[2021-03-14 15:54] LABS: African American GFR (CKD) 96.2 (60.0-200.0); Albumin 4.4 g/dL (3.80-4.90); Albumin/Globulin Ratio 1.83 (1.60-3.17); Anion Gap 7.9 mmol/L (4.00-12.00); BUN/Creat Ratio 16.25 Ratio (12.00-20.00); Calcium 8.7 mg/dL (8.7-10.3); Carbon Dioxide 26.1 mmol/L (21.6-31.8); Chol/HDL Ratio 5.08; Globulin 2.4 g/dL (1.6-3.3); Potassium 4.4 mmol/L (3.5-5.5); Total Bilirubin 0.5 mg/dL (0.3-1.2); Total Protein 6.8 g/dL (6.2-8.2)
[2021-03-14 16:02] LABS: T4, Free (Free Thyroxine) 1.2 ng/dL (0.80-1.80)
[2021-03-14 18:40] LABS: Hemoglobin A1C 9.4 % (4.0-6.0)
== END | disposition home or self-care (01) ==
LOC: LABWHC1 09:49
PROVIDERS: ATTEND Nurse Practitioner Gerontology
DX: E11.65 Type 2 diabetes mellitus with hyperglycemia (principal); E78.2 Mixed hyperlipidemia; E04.1 Nontoxic single thyroid nodule
CPT/HCPCS: 36415; 80053; 80061; 83036; 84439; 84443; 85025

== ENCOUNTER → 2021-04-17 | Outpatient (CLI) | payer BC ==
--- NOTE | 2021-04-17 07:50 | US ---
EXAMINATION TYPE: US abdomen complete DATE OF EXAM: 04/17/2021 COMPARISON: CT 2013 CLINICAL HISTORY: R10.9 Abdominal pain. EXAM MEASUREMENTS: Liver Length: 18.5cm Gallbladder Wall: 0.2 CBD: 0.5m Spleen: 10.0cm Right Kidney: 11.2x4.5x5.4cm Left Kidney: 11.9x4.4x4.9cm Pancreas: wnl Liver: Increased attenuation, decreased visualization of vessels suggestive of fatty infiltrate Gallbladder: wnl Evidence for sonographic Renteria's sign: No CBD: wnl Spleen: wnl Right Kidney: wnl Left Kidney: wnl Upper IVC: wnl Abd Aorta: wnl The liver is homogenous. The intrahepatic portion of the IVC and proximal abdominal aorta are within normal limits. There is no evidence of cholelithiasis. Common bile duct is unremarkable. The visu alized portions of the pancreas are homogenous. The spleen is unremarkable. Kidneys are symmetric a nd free of hydronephrosis. No renal lesions are seen. IMPRESSION: No distinct abnormality identified.
== END | disposition home or self-care (01) ==
LOC: RADUSWWP 06:57
PROVIDERS: ATTEND Internal Medicine Geriatric Medicine
DX: R10.9 Unspecified abdominal pain (principal)
CPT/HCPCS: 76700

== ENCOUNTER → 2022-05-04 | Outpatient (CLI) | payer BC ==
[2022-05-04 14:26] LABS: HCT 39.6 % (37.2-46.3); HGB 14.2 g/dL (12.0-15.0); MCHC 35.9 g/dL (32.0-37.0); MCV 83.7 fL (80.0-97.0); Mean Platelet Volume 10.9 fL (9.5-12.2); NRBC Per 100 WBC 0 /100 WBCS (0.0-0.0); Platelet Count 368 X 10*3/uL (140-440); RBC 4.73 X 10*6/uL (4.10-5.20); RDW 12.1 % (11.5-14.5); WBC 6.94 X 10*3/uL (4.50-10.00)
[2022-05-04 15:11] LABS: ALT 50 U/L (8-44); AST 31 U/L (13-35); African American GFR (CKD) 112.3 (60.0-200.0); Albumin 4.5 g/dL (3.8-4.9); Albumin/Globulin Ratio 2.14 (1.60-3.17); Alkaline Phosphatase 77 U/L (41-126); Blood Urea Nitrogen 16.1 mg/dL (9.0-27.0); Calcium 9.4 mg/dL (8.7-10.3); Carbon Dioxide 22.1 mmol/L (20.0-27.5); Chloride 99 mmol/L (96-109); Chol/HDL Ratio 5.58 Ratio; Globulin 2.1 g/dL (1.6-3.3); Glucose 295 mg/dL (70-110); LDL Cholesterol,Calculated 123.8 mg/dL (0.0-131.0); Non-African American GFR(CKD) 96.9 (60.0-200.0); Potassium 4.6 mmol/L (3.5-5.5); Sodium 133 mmol/L (135-145); Total Protein 6.6 g/dL (6.2-8.2)
== END | disposition home or self-care (01) ==
LOC: LABWHC1 08:03
PROVIDERS: ATTEND Family Medicine
DX: E04.1 Nontoxic single thyroid nodule (principal); E11.65 Type 2 diabetes mellitus with hyperglycemia; E78.2 Mixed hyperlipidemia
CPT/HCPCS: 36415; 80053; 80061; 82043; 82570; 83036; 84439; 84443; 85027

== ENCOUNTER → 2022-07-18 | Outpatient (CLI) | payer BC ==
[2022-07-18 10:19] LABS: Basophils # (A) 0.09 X 10*3/uL (0.00-0.10); Basophils % (A) 1.1 %; Eosinophils # (A) 0.31 X 10*3/uL (0.04-0.35); Eosinophils % (A) 3.9 %; HCT 37.9 % (37.2-46.3); Immature Grans, Automated 0.6 %; Lymphocytes # (A) 2.02 X 10*3/uL (0.90-5.00); Lymphocytes % (A) 25.7 %; MCH 30.2 pg (27.0-32.0); MCHC 34.3 g/dL (32.0-37.0); MCV 87.9 fL (80.0-97.0); Mean Platelet Volume 10.1 fL (9.5-12.2); Monocytes # (A) 0.48 X 10*3/uL (0.20-1.00); Monocytes % (A) 6.1 %; NRBC Per 100 WBC 0 /100 WBCS (0.0-0.0); Neutrophils # (A) 4.91 X 10*3/uL (1.80-7.70); Neutrophils % (A) 62.6 %; Platelet Count 394 X 10*3/uL (140-440); RBC 4.31 X 10*6/uL (4.10-5.20); RDW 11.9 % (11.5-14.5); WBC 7.86 X 10*3/uL (4.50-10.00)
[2022-07-18 10:37] LABS: Chol/HDL Ratio 5.22 Ratio; LDL Cholesterol,Calculated 137.8 mg/dL (0.0-131.0)
[2022-07-18 10:38] LABS: ALT 29 U/L (8-44); AST 19 U/L (13-35); African American GFR (CKD) 114.9 (60.0-200.0); Albumin 4.2 g/dL (3.8-4.9); Albumin/Globulin Ratio 1.97 (1.60-3.17); Alkaline Phosphatase 59 U/L (41-126); BUN/Creat Ratio 26.23 Ratio (12.00-20.00); Blood Urea Nitrogen 17.1 mg/dL (9.0-27.0); Calcium 9.2 mg/dL (8.7-10.3); Carbon Dioxide 23.8 mmol/L (20.0-27.5); Chloride 103 mmol/L (96-109); Globulin 2.1 g/dL (1.6-3.3); Glucose 146 mg/dL (70-110); Non-African American GFR(CKD) 99.2 (60.0-200.0); Potassium 4.6 mmol/L (3.5-5.5); Sodium 138 mmol/L (135-145); Total Protein 6.4 g/dL (6.2-8.2)
[2022-07-18 20:09] LABS: Urine Creatinine 54.9 mg/dL (28.0-217.0)
[2022-07-19 12:47] LABS: Microalbumin Creatinine Ratio <30 mg/g Creat (0-30)
== END | disposition home or self-care (01) ==
LOC: LABWHC1 07:09
PROVIDERS: ATTEND Nurse Practitioner Family
DX: E11.65 Type 2 diabetes mellitus with hyperglycemia (principal)
CPT/HCPCS: 36415; 80053; 80061; 82043; 82570; 83036; 85025

== ENCOUNTER → 2022-08-28 | Outpatient (CLI) | payer BC ==
--- NOTE | 2022-08-29 20:17 | MR ---
EXAMINATION TYPE: MR cervical spine wo con DATE OF EXAM: 08/28/2022 INDICATION: Patient age:Female; 57 years old; Reason for study: M54.12 RADICULOPATHY, CERVICAL REGION. Neck pain into left arm and middle of back COMPARISON: None. TECHNIQUE: Multi planar, multi sequence imaging was performed utilizing: T1-weighted, T2-weighted, an d turbo inversion recovery imaging of the cervical spine. IV Contrast: None FINDINGS: Alignment: The cervical vertebral bodies have preserved heights. Grade 1 anterolisthesis of C4 on C5 and C7 on T1. Bones: Postsurgical changes to C5, C6 and C7. Scattered osteophyte formation and disc space narrowing . Cord: The spinal cord is unremarkable with regards to their signal intensity and morphology. Discs: Disc desiccation is present. Discectomy changes at C5-C6 and C6-C7. C2-C3: No significant disc pathology. The spinal canal is patent. No neural foraminal stenosis. C3-C4: No significant disc pathology. The spinal canal is patent. Bilateral facet and uncovertebral joint arthropathy are present with mild to moderate right and mild left neural foraminal stenosis. C4-C5: A eccentric right disc osteophyte complex which abuts the anterior spinal cord is present with mild spinal canal stenosis. Bilateral facet and uncovertebral joint arthropathy are present with mod erate to severe left and mild right bilateral neural foraminal stenosis. C5-C6: A disc osteophyte complex is present with mild spinal canal stenosis. No neural foraminal violeta nosis. C6-C7: No significant disc pathology. The spinal canal is patent. No neural foraminal stenosis. C7-T1: Grade 1 anterolisthesis with a disc osteophyte complex is present with moderate spinal canal s tenosis. No neural foraminal stenosis. Other: None. IMPRESSION: 1. C7-T1 moderate to severe spinal canal stenosis 2. C4-C5 eccentric right disc osteophyte complex which effaces the anterior spinal cord. No evidence of abnormal signal change from the spinal cord. 3. Multilevel disc degeneration changes worse at C4-C5 on the left with moderate to severe neural fo raminal stenosis.
== END | disposition home or self-care (01) ==
LOC: RADMRIMAIN 08:04
PROVIDERS: ATTEND Orthopaedic Surgery Orthopaedic Surgery of the Spine
DX: M50.121 Cervical disc disorder at C4-C5 level with radiculopathy (principal); M48.02 Spinal stenosis, cervical region; M25.78 Osteophyte, vertebrae; M99.71 Connective tissue and disc stenosis of intervertebral foramina of cervical region
CPT/HCPCS: 72141

== ENCOUNTER → 2023-03-22 | Outpatient (CLI) | payer BC ==
[2023-03-22 15:39] LABS: HCT 40.8 % (37.2-46.3); HGB 14.5 d/dL (12.0-15.0); Lymphocytes % (A) 23.2 %; MCH 30.9 pg (27.0-32.0); MCHC 35.5 d/dL (32.0-37.0); MCV 86.8 FL (80.0-97.0); Mean Platelet Volume 10.1 FL (9.5-12.2); Monocytes % (A) 7.5 %; NRBC Per 100 WBC 0 X 10*3/uL (0.00-0.01); Neutrophils % (A) 62.3 %; Platelet Count 382 X 10*3/uL (140-440); RDW 12.2 % (11.5-14.5); WBC 8.26 X 10*3/uL (4.50-10.00)
[2023-03-22 15:40] LABS: Basophils # (A) 0.14 X 10*3/uL (0.00-0.10); Basophils % (A) 1.7 %; Eosinophils # (A) 0.42 X 10*3/uL (0.04-0.35); Eosinophils % (A) 5.1 %; Lymphocytes # (A) 1.92 X 10*3/uL (0.90-5.00); Monocytes # (A) 0.62 X 10*3/uL (0.20-1.00); Neutrophils # (A) 5.14 X 10*3/uL (1.80-7.70)
[2023-03-22 15:59] LABS: ALT 41 U/L (8-44); AST 26 U/L (13-35); Albumin 4.5 d/dL (3.8-4.9); Alkaline Phosphatase 76 U/L (41-126); Blood Urea Nitrogen 14.7 mg/dL (9.0-27.0); Calcium 9.5 mg/dL (8.7-10.3); Carbon Dioxide 23.5 mmol/L (21.6-31.8); Chloride 102 mmol/L (96-109); Chol/HDL Ratio 5.76 Ratio; Globulin 2.5 d/dL (1.6-3.3); Glucose 165 mg/dL (70-110); LDL Cholesterol,Calculated 129.7 mg/dL (0.0-131.0); Potassium 4.3 mmol/L (3.5-5.5); Sodium 138 mmol/L (135-145); T4, Free (Free Thyroxine) 1.39 ng/dL (0.80-1.80); Total Bilirubin 0.3 mg/dL (0.3-1.2)
[2023-03-22 21:54] LABS: Microalbumin Creatinine Ratio <7 mg/g Cr (0-30)
== END | disposition home or self-care (01) ==
LOC: LABWHC1 07:05
PROVIDERS: ATTEND Family Medicine
DX: E07.9 Disorder of thyroid, unspecified (principal); E11.65 Type 2 diabetes mellitus with hyperglycemia
CPT/HCPCS: 36415; 80053; 80061; 82043; 82570; 83036; 84439; 84443; 85025

== ENCOUNTER → 2024-01-28 | Outpatient (CLI) | payer BC ==
[2024-01-28 11:42] LABS: Basophils # (A) 0.07 X 10*3/uL (0.00-0.10); Basophils % (A) 0.9 %; Eosinophils # (A) 0.25 X 10*3/uL (0.04-0.35); Eosinophils % (A) 3.1 %; HCT 41.1 % (37.2-46.3); HGB 13.9 g/dL (12.0-15.0); Lymphocytes # (A) 1.96 X 10*3/uL (0.90-5.00); Lymphocytes % (A) 24.2 %; MCH 29.7 pg (27.0-32.0); MCHC 33.8 g/dL (32.0-37.0); MCV 87.8 FL (80.0-97.0); Mean Platelet Volume 10.5 FL (9.5-12.2); Monocytes # (A) 0.55 X 10*3/uL (0.20-1.00); Monocytes % (A) 6.8 %; NRBC Per 100 WBC 0 X 10*3/uL (0.00-0.01); Neutrophils # (A) 5.25 X 10*3/uL (1.80-7.70); Neutrophils % (A) 64.8 %; Platelet Count 353 X 10*3/uL (140-440); RBC 4.68 X 10*6/uL (4.10-5.20); RDW 12.2 % (11.5-14.5)
[2024-01-28 12:03] LABS: ALT 32 U/L (8-44); AST 29 U/L (13-35); Albumin 4.5 g/dL (3.8-4.9); Albumin/Globulin Ratio 1.88 Ratio (1.60-3.17); Alkaline Phosphatase 77 U/L (41-126); BUN/Creat Ratio 17.57 Ratio (12.00-20.00); Blood Urea Nitrogen 12.3 mg/dL (9.0-27.0); Calcium 9.6 mg/dL (8.7-10.3); Carbon Dioxide 20.5 mmol/L (21.6-31.8); Chloride 103 mmol/L (96-109); Chol/HDL Ratio 4.33 Ratio; Globulin 2.4 g/dL (1.6-3.3); Glucose 146 mg/dL (70-110); LDL Cholesterol,Calculated 88.2 mg/dL (0.0-131.0); Sodium 138 mmol/L (135-145); T4, Free (Free Thyroxine) 1.24 ng/dL (0.80-1.80); Total Bilirubin 0.3 mg/dL (0.3-1.2); Total Protein 6.9 g/dL (6.2-8.2)
== END | disposition home or self-care (01) ==
LOC: LABWHC1 07:25
PROVIDERS: ATTEND Family Medicine
DX: E11.65 Type 2 diabetes mellitus with hyperglycemia (principal); E07.9 Disorder of thyroid, unspecified; E78.2 Mixed hyperlipidemia
CPT/HCPCS: 36415; 80053; 80061; 83036; 84439; 84443; 85025

== ENCOUNTER → 2024-05-20 | Outpatient (CLI) | payer BC ==
[2024-05-20 16:03] LABS: Basophils % (A) 1.2 %; Eosinophils # (A) 0.36 X 10*3/uL (0.04-0.35); Eosinophils % (A) 4.3 %; HCT 40.3 % (37.2-46.3); HGB 13.6 g/dL (12.0-15.0); Lymphocytes # (A) 2.24 X 10*3/uL (0.90-5.00); Lymphocytes % (A) 26.6 %; MCHC 33.7 g/dL (32.0-37.0); Mean Platelet Volume 10.9 FL (9.5-12.2); Monocytes # (A) 0.46 X 10*3/uL (0.20-1.00); Monocytes % (A) 5.5 %; NRBC Per 100 WBC 0 X 10*3/uL (0.00-0.01); Neutrophils # (A) 5.25 X 10*3/uL (1.80-7.70); Neutrophils % (A) 62.2 %; Platelet Count 383 X 10*3/uL (140-440); RBC 4.53 X 10*6/uL (4.10-5.20); RDW 12.5 % (11.5-14.5); WBC 8.43 X 10*3/uL (4.50-10.00)
[2024-05-20 17:08] LABS: ALT 27 U/L (8-44); AST 22 U/L (13-35); Albumin 4.2 g/dL (3.8-4.9); Albumin/Globulin Ratio 1.75 Ratio (1.60-3.17); Alkaline Phosphatase 69 U/L (41-126); Blood Urea Nitrogen 19.5 mg/dL (9.0-27.0); Carbon Dioxide 22.8 mmol/L (21.6-31.8); Chloride 103 mmol/L (96-109); Chol/HDL Ratio 5.43 Ratio; Globulin 2.4 g/dL (1.6-3.3); Glucose 111 mg/dL (70-110); LDL Cholesterol,Calculated 141.1 mg/dL (0.0-131.0); Potassium 4.4 mmol/L (3.5-5.5); Sodium 138 mmol/L (135-145); T4, Free (Free Thyroxine) 1.22 ng/dL (0.80-1.80); Total Bilirubin 0.4 mg/dL (0.3-1.2); Total Protein 6.6 g/dL (6.2-8.2)
== END | disposition home or self-care (01) ==
LOC: LABWHC1 07:50
PROVIDERS: ATTEND Family Medicine
CPT/HCPCS: 36415; 80053; 80061; 82043; 82306; 82570; 82607; 83036; 84439; 84443; 85025

== ENCOUNTER → 2024-07-07 | Outpatient (CLI) | payer BC ==
--- NOTE | 2024-07-12 04:38 | MM ---
Reason for Exam: Screening (asymptomatic). Last mammogram was performed 1 year(s) and 10 month(s) ago. Patient History: Menarche at age 13. First Full-Term at age 24. Hysterectomy at age 38. Postmenopausal. Patient has history of breast feeding. Estrogen for 6 months from age 38 until age 38. Paternal grandmother had breast cancer, age 50. Paternal aunt had breast cancer, age 50. Risk Values: Armida 5 year model risk: 1.2%. NCI Lifetime model risk: 6.9%. Prior Study Comparison: 07/14/2015 Bilateral Diagnostic Mammogram, [facility]. 01/28/2017 Bilateral Diagnostic Mammogram, [facility]. 09/18/2022 Bilateral MG 3D screening mammo w/cad, [facility]. Tissue Density: There are scattered areas of fibroglandular density. Findings: Analyzed By CAD. The pattern is symmetrical. No significant interval change. Small benign rounded calcifications are present bilaterally. No suspicious groups of microcalcifications, spiculated or lobular masses, architectural distortion or other secondary signs of malignancy are mammographically apparent. Overall Assessment: Benign, BI-RAD 2 Management: Screening Mammogram of both breasts in 1 year. A negative mammogram report should not preclude additional follow up of suspicious palpable abnormalities. Patient should continue monthly self breast exam. A clinical breast exam by your physician is recommended on an annual basis and results should be correlated with mammographic findings. Note on Armida scores and lifetime risk: 1. A Armida score greater than 3% is considered moderate risk. If this is the case, consider specialist referral to assess eligibility for a risk reducing agent. 2. If overall lifetime risk for the development of breast cancer is 20% or higher, the patient may qualify for future screening with alternating mammogram and breast MRI. [facility], , 07/12/2024 4:36 AM. Electronically signed and approved by: Ney Feliciano D.O. Radiologis
== END | disposition home or self-care (01) ==
LOC: RADMAMWWP 10:55
PROVIDERS: ATTEND Family Medicine
DX: Z12.31 Encounter for screening mammogram for malignant neoplasm of breast (principal); R92.323 Mammographic fibroglandular density, bilateral breasts; Z78.0 Asymptomatic menopausal state; Z80.3 Family history of malignant neoplasm of breast
CPT/HCPCS: 77063; 77067